=== PATIENT | female | born 1965 ===

== ENCOUNTER 2018-04-20 07:20 | Day surgery (SDC) | payer OTHER ==
[~2018-04-20] VITALS: Ht 172.7 cm; Wt 122.5 kg
[2018-04-20] VITALS (11 sets, daily range): BP systolic 136–165; BP diastolic 56–90
--- NOTE | 2018-04-20 07:16 | Pre-Procedure Note/Attestation ---
Pre-Procedure Note/Attestation Complete Prior to Procedure Planned Procedure: right Procedure Narrative: Right quadriceps rupture repair Indications for Procedure Pre-Operative Diagnosis: Right quadriceps rupture Attestation I attest that I discussed the nature of the procedure; its benefits; risks and complications; and alternatives (and the risks and benefits of such alternatives ), prior to the procedure, with the patient (or the patient's legal ict sales representative). I attest that, if there was a reasonable possibility of needing a blood transfusion, the patient (or the patient's legal ict sales representative) was given the [facility] standardized written summary, pursuant to the Janusz Robert Blood Safety Act ([place] Health and Safety Code # 1645, as amended). I attest that I re-evaluated the patient just prior to the surgery and that there has been no change in the patient's H&P, except as documented below: Augusto Awan MD Apr 20, 2018 07:16
[~2018-04-20 07:20] MED LIST: AMLODIPINE BESYL5 MG ORAL; TRIAMTERENE-HC1 EAC7 ORAL; VITAMIN D250000 UNI1 ORAL
[2018-04-20] MEDS ORDERED: Norco 5mg/325mg tab ORAL PRN (07:30)
[2018-04-20] MEDS ORDERED: Tylenol #3 tab (300mg/30mg) ORAL PRN (07:30)
[2018-04-20] MEDS ORDERED: HYDROmorphone 1mg/ml Carpuject SUBQ PRN (07:30)
[2018-04-20] MEDS ORDERED: LR 1000ml 1,000 ML IVLG SCH (08:11)
--- NOTE | 2018-04-20 08:11 | Anethesia Preoperative Eval ---
Anesthesia Pre-op PMH/ROS General Date of Evaluation: Apr 20, 2018 Anesthesiologist: Lebron ASA Score: ASA 2 Mallampati Score Class I : Soft palate, uvula, fauces, pillars visible Class II: Soft palate, uvula, fauces visible Class III: Soft palate, base of uvula visible Class IV: Only hard plate visible Mallampati Classification: Class III Surgeon: Lv Diagnosis: Right quadriceps rupture Surgical Procedure: Right quadriceps repair Anesthesia History: none Family History: no anesthesia problems Allergies: Coded Allergies: No Known Allergies (Unverified , 04/19/18) Medications: see eMAR Patient NPO?: Yes NPO Date: Apr 19, 2018 NPO Time: 22:00 Past Medical History Cardiovascular: Reports: HTN, other - HLD; Denies: CAD, [place], valve dz, arrhythmia Pulmonary: Denies: asthma, COPD, STEFANY, other Gastrointestinal/Genitourinary: Denies: GERD, CRI, ESRD, other Neurologic/Psychiatric: Reports: depression/anxiety; Denies: dementia, CVA, TIA, other Endocrine: Denies: DM, hypothyroidism, steroids, other HEENT: Denies: cataract (L), cataract (R), glaucoma, [place] (L), [place] (R), other Hematology/Immune: Reports: anemia - chronic; Denies: DVT, bleeding disorder, other Musculoskeletal/Integumentary: Reports: OA; Denies: RA, DJD, DDD, edema, other Other: obesity PSxH Narrative: Denies Anesthesia Pre-op Phys. Exam Physician Exam see chart Constitutional: NAD Cardiovascular: RRR Respiratory: CTA Airway Exam Mallampati Score: Class III MO: limited ROM: limited Anesthesia Pre-op A/P Labs see chart Studies Pre-op Studies: EKG - sr Risk Assessment & Plan Assessment: ASAS II Plan: GA with femoral nerve block Status Change Before Surgery: No Pre-Antibiotics Drug: Ancef 2g Given Within 1 Hr of Incision: Yes Time Given: 09:25 Lora Thao MD Apr 20, 2018 08:11
[2018-04-20] MEDS ORDERED: fentaNYL 100 mcg/2 mL IV PRN (08:15)
[2018-04-20] MEDS ORDERED: Metoclopramide 10mg/2ml Inj IVP PRN (08:15)
[2018-04-20] MEDS ORDERED: Midazolam 2mg/2ml Inj IVP PRN (08:15)
[2018-04-20] MEDS ORDERED: Ketorolac 30mg Inj IV PRN (08:15)
[2018-04-20] MEDS ORDERED: Hydromorphone 0.5mg/0.5ml inj IVP PRN (08:15)
[2018-04-20] MEDS ORDERED: LORazepam Inj 2mg/ml 1ml IV PRN (08:15)
[2018-04-20] MEDS ORDERED: DiphenhydrAMINE 50mg/ml Inj IVP PRN (08:15)
[2018-04-20] MEDS ORDERED: Bacitracin 50000 Units Vial ONE (08:53)
[2018-04-20] MEDS ORDERED: Bupivacaine w/Epi 0.5% 30ml Vial INJ ONE (08:53)
[2018-04-20] MEDS ORDERED: Lidocaine 1% MPF 10mg/ml 5ml ONE (09:00)
[2018-04-20] MEDS ORDERED: LR 1000ml ONE (09:00)
[2018-04-20] MEDS ORDERED: Ropivacaine 5mg/ml Vial 30ml INJ ONE (09:00)
[2018-04-20] MEDS ORDERED: NS Irrig 1000ml ONE (09:00)
[2018-04-20] MEDS ORDERED: Sterile Water Irrig 1000ml IRRIG ONE (09:00)
[2018-04-20] MEDS ORDERED: Propofol 200mg/20ml IV ONE (09:00)
[2018-04-20] MEDS ORDERED: fentaNYL 100 mcg/2 mL IV ONE (09:00)
[2018-04-20] MEDS ORDERED: Dexamethasone 4mg/ml vial ONE (09:34)
[2018-04-20] MEDS ORDERED: Metoclopramide 10mg/2ml Inj ONE (09:34)
[2018-04-20] MEDS ORDERED: Acetaminophen (Non formulary) 100 ML IV ONE (09:45)
[2018-04-20] MEDS ORDERED: Ketorolac 30mg Inj ONE (09:47)
--- NOTE | 2018-04-20 10:44 | Brief Operative Note ---
Immediate Post Operative Note Operative Note Pre-op Diagnosis: Right quadriceps rupture Procedure: Right quadriceps rupture repair Post-op Diagnosis: same as pre-op Findings: consistent w/pre-op dx studies Surgeon: Lv Anesthesiologist: Lebron Anesthesia: general, regional, moderate sedation Specimen: none Complications: none Condition: stable Fluids: 100 ml Estimated Blood Loss: minimal Drains: none Implant(s) used?: No Augusto Awan MD Apr 20, 2018 10:44
--- NOTE | 2018-04-20 10:46 | Immediate Post-Op Evaluation ---
Immediate Post-Op Evalulation Immediate Post-Op Evalulation Procedure: Right quadriecps repair Date of Evaluation: Apr 20, 2018 Time of Evaluation: 10:46 IV Fluids: 1.2L Blood Products: 0 Estimated Blood Loss: min Urinary Output: 0 Blood Pressure Systolic: 152 Blood Pressure Diastolic: 72 Pulse Rate: 80 Respiratory Rate: 17 O2 Sat by Pulse Oximetry: 100 Temperature (Fahrenheit): 97.8 Pain Score (1-10): 0 Nausea: No Vomiting: No Complications 0 Patient Status: awake, reacts, patent, none Hydration Status: adequate Drug: Ancef 2g Given Within 1 Hr of Incision: Yes Time Given: 09:25 Lora Thao MD Apr 20, 2018 10:46
--- NOTE | 2018-04-20 10:47 | 48 Hour Post Anesthesia Eval ---
Post Anesthesia Evaluation Procedure: Right quadriecps repair Date of Evaluation: Apr 20, 2018 Airway: patent Nausea: No Vomiting: No Pain Intensity: 2 Hydration Status: adequate Cardiopulmonary Status: at baseline Mental Status/LOC: patient returned to baseline Post-Anesthesia Complications: 0 Follow-up care needed: ready to discharge Lora Thao MD Apr 20, 2018 10:47
[2018-04-20] MEDS ORDERED: D5 1/2NS 1,000 ML IV SCH (14:00)
--- NOTE | 2018-04-20 19:45 | Operative Note - Dictated ---
DATE OF OPERATION: 04/20/2018 SURGEON: Augusto Awan M.D. SUPERINTENDENT SANITATION: None. ANESTHESIA: General plus regional COMPLICATIONS: None. ANTIBIOTICS: Ancef. PREOPERATIVE DIAGNOSIS: Right quadriceps rupture. POSTOPERATIVE DIAGNOSIS: Right quadriceps rupture. PROCEDURES PERFORMED: Right knee: 1. Quadriceps rupture repair. 2. Medial and lateral retinacular repair. BACKGROUND: The patient slipped and fell. She sustained the above injury. All risks, benefits, and alternatives to surgical intervention were discussed in great detail. Risks included, but not limited to, bleeding, infection, neurovascular injury, need for additional surgical intervention, failure of pain relief, arthrofibrosis, complications of anesthesia, blood clots, stroke, heart attack, and potentially . She understood these risks, amongst others including re-rupture, and consent was signed. PROCEDURE IN DETAIL: The patient was brought into the operating room and placed supine on the operating table. The right knee was correctly verified for surgical site and prepped and draped in standard sterile fashion. Two grams of Ancef were administered after regional anesthetic was administered. A midline incision was created after appropriate prepping and draping and reconfirmation of surgical site. Hemostasis was maintained using electrocautery. The tourniquet was not insufflated. The quadriceps rupture was found to be torn from the superior patella and both medial retinaculum were ruptured as well. A rongeur was used to clean ends of the rupture site and the superior aspect of the patella was debrided such that bleeding bone was readily apparent. A #5-FiberWire was whipstitched into the rupture distal aspect of the tendon. Three drill holes were created in the patella and the sutures were passed using a Fountain suture passer. With appropriate tension in full extension, with anatomic reduction, the sutures were tied over the bone bridge. A reinforcing 0 Vicryl suture was utilized over top of the repair. A # 1 Vicryl was then used to repair both the medial and lateral retinaculum. Copious irrigation was utilized throughout the knee joint prior to repair. Copious irrigation was then utilized after repair. Finger sweep revealed no retained foreign body or debris. The knee was tested under direct visualization and flexion to 80 degrees. Did not stress the repair. The tissues were reapproximated using 0 Vicryl, 2-0 Vicryl, and Monocryl for skin. Steri-Strips were used over Mastisol. Dry sterile dressing was applied. A compressive Bill wrap was fitted. A knee immobilizer was secured. She tolerated the procedure well. There were no complications. I attest I performed the entire operation. She was transferred to recovery in good condition. Augusto Awan M.D. DR: Kelly JOB#: [id number] CC:
== END 2018-04-20 13:40 | disposition home or self-care (01) ==
LOC: SUR 07:20
DX: S76.111A Strain of right quadriceps muscle, fascia and tendon, initial encounter (principal); I10 Essential (primary) hypertension; E78.5 Hyperlipidemia, unspecified; F32.9 Major depressive disorder, single episode, unspecified; F41.9 Anxiety disorder, unspecified; W01.0XXA Fall on same level from slipping, tripping and stumbling without subsequent striking against object, initial encounter; Y92.9 Unspecified place or not applicable
CPT/HCPCS: 27385; J0690; J1100; J1170; J1885; J2250; J2405; J2704; J2765; J2795; J3010; 94003; 94150